=== PATIENT | male | born 1940 | race Caucasian/White ===

== ENCOUNTER 2017-04-16 11:28 | Emergency (ER) | payer MEDICARE, OTHER ==
[~2017-04-16] VITALS: Ht 172.7 cm; Wt 79.0 kg
[2017-04-16 11:33] VITALS: Ht 172.7 cm; Wt 79.0 kg
[2017-04-16] MEDS ORDERED: DIPHTH/TET/ACEL PERTUSS (ADULT) 0.5 ML VIAL IM* ONE (14:00)
--- NOTE | 2017-04-16 14:02 | ERD ---
ER Documentation Chief Complaint Chief Complaint RT 3RD FINGER PAIN AND LACERATION S/P WINDOW BEING CLOSED ON IT HPI 76-year-old male presenting one day status post crush injury from window to the left third right digit. Denies any numbness, tingling, loss of range of motion , or other rapidly progressive neurological deficits. Has not taken any medications to relieve symptoms. Patient has no other complaints and describes no other associated manifestations. Nursing notes have been reviewed and are consistent with history given. ROS All systems reviewed and are negative except as per history of present illness. Allergies Allergies: Coded Allergies: No Known Allergy (Unverified , 04/16/17) PMhx/Soc Medical and Surgical Hx: pt denies Medical Hx, pt denies Surgical Hx Hx Alcohol Use: No Hx Substance Use: No Hx Tobacco Use: No Smoking Status: Never smoker Physical Exam Vitals Vital Signs Date Time Temp Pulse Resp B/P Pulse Ox O2 Delivery O2 Flow Rate FiO2 04/16/17 11:33 98.6 77 17 200/92 96 Physical Exam Const: Healthy-appearing 76-year-old male no acute distress Head: Atraumatic Eyes: Normal Conjunctiva ENT: Normal External Ears, Nose and Mouth. Neck: Full range of motion..~ No meningismus. Resp: Clear to auscultation bilaterally Cardio: Regular rate and rhythm, no murmurs Abd: Soft, non tender, non distended. Normal bowel sounds Skin: As noted in extremity exam Back: No midline or flank tenderness Ext: 1 cm avulsion laceration of the epidermis over the right third digit palmar aspect. Tendons intact. Neurologically intact. Vascular intact. Cap refill less than 2 seconds bilaterally. Radial pulses 2+ bilaterally. No snuffbox tenderness. Neur: Awake and alert Psych: Normal Mood and Affect Results 24 hrs Current Medications Medications (Trade) Dose Ordered Sig/Alvina Route PRN Reason Start Time Stop Time Status Last Admin Dose Admin Diphtheria/ Tetanus/Acell Pertussis (Adacel) 0.5 ml ONCE ONCE IM* 04/16/17 14:00 04/16/17 14:01 04/16/17 13:46 Procedures/MDM 76-year-old male presenting with a chief complaint of laceration 1 days status post crush injury. X-ray was obtained, read with the radiologist as negative for acute pathology with signs of chronic arthritic changes. I have no suspicion for open fracture, or neurovascular compromise. Most likely diagnosis is gross injury with avulsion laceration. Sutures not needed at this time. Tdap was given. Area was cleaned. Neurovascularly intact after cleaning. I have spoke with the patient regarding their condition and future management. They have verbally responded that they understand their status and treatment plan. The patients vitals are stable, and their current condition is appropriate for discharge. The patient will be given discharge instructions with return precautions. Departure Diagnosis: Primary Impression: Pain of finger Laterality: right Qualified Code: M79.644 - Pain of finger of right hand Condition: Stable Patient Instructions: Finger Contusion Additional Instructions: Follow up with your PCP within the next 1-3 days for a more thorough evaluation and a possible referral to a specialist. Return the the emergency department immediately if symptoms worsen or change. Consider [id number] Tylenol for discomfort. If you have any questions regarding medications, ask your pharmacist or us before you leave. If any adverse reactions occur while taking your medications, discontinue the treatment and return to the emergency department immediately. Take your medications as directed, and complete the entire course of treatment. SANDRINE ODEN PA-C Apr 16, 2017 14:02
--- NOTE | 2017-04-16 16:02 | RADRPT ---
PROCEDURE: XR Hand. CLINICAL INDICATION: Trauma. TECHNIQUE: Three views of the right hand were obtained. COMPARISON: No prior studies are available for comparison. FINDINGS: A ring cannot be removed from the middle finger. The osseous structures appear grossly intact with n o acute fracture identified. There is evidence of severe joint space narrowing with subchondral irre gularity and mild sclerosis involving the third distal interphalangeal joint with associated soft ti ssue swelling. Moderate degenerative joint disease involving the second distal interphalangeal joint is noted. There is moderately severe degenerative joint disease involving the fifth distal interpha langeal joint and mild to moderate involving the fourth distal interphalangeal joint. Mild degenerat molly changes of the middle proximal interphalangeal joints are seen. Moderate degenerative joint dise ase involving the first carpal metacarpal joint is also evident. Slight soft tissue irregularity josselin ng the third tuft is evident. IMPRESSION: 1. No evidence of acute fracture or subluxation. 2. Extensive scattered moderate to severe degenerative joint disease involving the distal interphal angeal joints more so than the proximal interphalangeal joints. Please see details above. 3. 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 RPTAT: HJ[facility] .Leonor Cohen MD, Date Time Electronically viewed and signed by .Leonor Cohen MD, on 04/16/2017 16:02 .H/
== END 2017-04-16 14:08 | disposition home or self-care (01) ==
LOC: FTE 11:28
DX: M79.644 Pain in right finger(s) (principal); Z23 Encounter for immunization
CPT/HCPCS: 73140; 90471; 90715

== ENCOUNTER 2017-07-10 05:08 | Observation (INO) | END 2017-07-12 17:16 | disposition home or self-care (01) ==

== ENCOUNTER → 2018-01-05 | Outpatient (CLI) | END | disposition home or self-care (01) ==

== ENCOUNTER → 2018-08-17 | Outpatient (CLI) | payer MEDICARE, OTHER ==
[~2018-08-17] MED LIST: ADV25050 INHALATION; ASPI-903 PO; ATOR40TA68 PO; DOXA4TAB3 PO; DUTA0.5C PO; LAS20 PO; LOSA50TA2 PO; METO-336 PO; MONT10TA24 PO; NIFE60TA18 PO; PANT40TA4 PO; ZOLP5TAB7 PO
== END | disposition home or self-care (01) ==
LOC: RAD 11:18
PROVIDERS: ATTEND Internal Medicine
DX: R05 Cough (principal)
CPT/HCPCS: 71046